=== PATIENT | female | born 1945 | race Caucasian/White ===

== ENCOUNTER 2017-08-08 09:39 | Day surgery (SDC) | payer MEDICARE, OTHER ==
[2017-08-08] VITALS (13 sets, daily range): BP systolic 97–139; BP diastolic 63–85
[~2017-08-08] VITALS: Ht 152.4 cm; Wt 61.8 kg
[2017-08-08] MEDS ORDERED: normal saline 1000ml 1,000 ML IV SCH (10:30)
[2017-08-08] MEDS ORDERED: nitroGLYCERIN 0.4mg SUBLingual tab SL PRN (10:30)
[2017-08-08] MEDS ORDERED: diphenhydrAMINE 25mg capsule PO PRN (10:30)
[2017-08-08] MEDS ORDERED: LORazepam 0.5 MG tablet PO PRN (10:30)
[2017-08-08] MEDS ORDERED: AMLO10TA4 PO (11:37)
[2017-08-08] MEDS ORDERED: RAMI10CA34 PO (11:38)
[2017-08-08] MEDS ORDERED: ATEN25TA PO (11:38)
[2017-08-08] MEDS ORDERED: ALPR-624 PO (11:39)
[2017-08-08] MEDS ORDERED: OMEG1CAP21 PO (11:40)
[2017-08-08] MEDS ORDERED: CA C1TAB86 PO (11:43)
[2017-08-08] MEDS ORDERED: iohexol 350MG/ML 100ml bottle IV ONE (13:59)
[2017-08-08] MEDS ORDERED: LIDOcaine 1%/PF (10mg/ml) 5ml vial ONE (13:59)
[2017-08-08] MEDS ORDERED: fentaNYL/PF 50MCG/1 ML 2ML syringe ONE (13:59)
[2017-08-08] MEDS ORDERED: midazolam 2 mg/2 ml injection ONE (13:59)
[2017-08-08] MEDS ORDERED: iohexol 350 MG/ML 50ML vial IV ONE (13:59)
[2017-08-08] MEDS ORDERED: proCHLORperazine 10 MG/2 ml inj IV PRN (15:40)
[2017-08-08] MEDS ORDERED: OXAZEpam 15mg capsule PO PRN (15:40)
[2017-08-08] MEDS ORDERED: ondansetron/PF 4mg/2ml inj IV PRN (15:40)
[2017-08-08] MEDS ORDERED: HYDROcodone/acetaminophen 10/325mg tab PO PRN (15:40)
[2017-08-08] MEDS ORDERED: HYDROcodone/acetaminophen 5mg/325mg tablet PO PRN (15:40)
[2017-08-08] MEDS ORDERED: acetaminophen 325mg tablet PO PRN (15:40)
== END 2017-08-08 20:20 | disposition home or self-care (01) ==
LOC: SSTAY O 09:39
PROVIDERS: ATTEND Internal Medicine Cardiovascular Disease
DX: I25.10 Atherosclerotic heart disease of native coronary artery without angina pectoris (principal)
CPT/HCPCS: 93458; A6257; C1760; C1769; J1644; J2001; J2250; J3010; J7030; Q0163; Q9967; 99152; 99153; A4620